=== PATIENT | female | born 1935 | race Caucasian/White ===

== ENCOUNTER 2017-07-08 13:02 | Inpatient (IN) | payer MEDICAID ==
[~2017-07-08] VITALS: Ht 157.5 cm; Wt 55.9 kg
--- NOTE | 2017-07-08 13:30 | NUR ---
PT SENT BY DR VALENTIN FOR EVAL OF LEFT FOOT 1ST AND 2ND TOE. PATIENT HAS DIABETIC ULCERS X 1 MONTH. A/OX 4. BREATHING EVEN AND UNLABORED. NO SOB. VITAL STABLE. SAFETY AND COMFORT MEASURES IN PLACE. AWAITING MD ORDERS.
--- NOTE | 2017-07-08 13:40 | NUR ---
NEW IV STARTED ON RAC, 20 G. BLOOD DRAWN AND SENT TO LAB.
[2017-07-08 13:45] LABS: BASOPHILS # (AUTO) 0.5 /CMM (0.0-0.2); BASOPHILS % (AUTO) 4.5 % (0.0-2.0); EOSINOPHILS # (AUTO) 0.3 /CMM (0.0-0.7); EOSINOPHILS % (AUTO) 2.9 % (0.0-6.0); HEMATOCRIT 39 % (33-45); HEMOGLOBIN 13.1 g/dL (11.5-14.8); LYMPHOCYTES # (AUTO) 2.7 /CMM (0.8-4.8); LYMPHOCYTES % (AUTO) 24.9 % (20.0-44.0); MEAN CORPUSCULAR HEMOGLOBIN 30 PG (26.0-33.0); MEAN CORPUSCULAR HGB CONC 34 g/dl (31.0-36.0); MEAN CORPUSCULAR VOLUME 88 fL (82-100); MONOCYTES # (AUTO) 0.6 /CMM (0.1-1.30); MONOCYTES % (AUTO) 5.4 % (2.0-12.0); NEUTROPHILS # (AUTO) 6.6 /CMM (1.8-8.9); NEUTROPHILS % (AUTO) 62.3 % (43.0-81.0); PLATELET COUNT (AUTO) 300 /CMM (150-450); RDW COEFFICIENT OF VARIATION 12.9 (11.5-15.0); WHITE BLOOD COUNT (AUTO) 10.7 K/uL (4.3-11.0)
[2017-07-08 13:58] LABS: CALCIUM, SERUM 9.2 mg/dL (8.5-10.1); CARBON DIOXIDE 27 mmol/L (21-32); CHLORIDE 104 mmol/L (98-107); CREATININE 0.9 mg/dL (0.6-1.3); GLUCOSE 190 mg/dL (74-106); POTASSIUM 4.1 mmol/L (3.5-5.1); SODIUM SERUM 137 mmol/L (136-145); UREA NITROGEN, BLOOD 20 mg/dL (7-18)
[2017-07-08 14:03] LABS: INR 0.89 (0.85-1.15)
[2017-07-08 14:05] LABS: ALANINE AMINOTRANSFERASE 14 U/L (12-78); ALBUMIN 3.8 g/dL (3.4-5.0); ALKALINE PHOSPHATASE 88 U/L (46-116); ASPARTATE AMINOTRANSFERASE 13 U/L (15-37); BILIRUBIN,DIRECT 0.1 mg/dL (0.0-0.2); BILIRUBIN,TOTAL 0.3 mg/dL (0.2-1.0); TOTAL PROTEIN, SERUM 7.8 g/dL (6.4-8.2)
[2017-07-08] MEDS ORDERED: VANCOMYCIN 1 GM in IV D5W 250 ML IV ONE (14:30)
[2017-07-08] MEDS ORDERED: PIPERACILLIN /TAZOBACTAM 3.375 G in IV D5W 50 ML IV ONE (14:30)
[2017-07-08] MEDS ORDERED: HYDROMORPHONE INJ 0.5 MG/0.5 ML SYRINGE ONE (14:57)
[2017-07-08] MEDS ORDERED: PIRO20CA2 PO (14:59)
[2017-07-08] MEDS ORDERED: [UNRECOGNIZED DRUG - OTHER] PO (14:59)
[2017-07-08] MEDS ORDERED: RANI150T8 PO (14:59)
[2017-07-08] MEDS ORDERED: GLYB-214 PO (14:59)
[2017-07-08] MEDS ORDERED: [UNRECOGNIZED DRUG - OTHER] PO (14:59)
[2017-07-08] MEDS ORDERED: MORPHINE SULFATE INJ 2 MG/ML DISP.SYRIN IV ONE (15:00)
[2017-07-08] MEDS ORDERED: HYDROMORPHONE 1 MG/1 ML DISP.SYRIN IV ONE (15:00)
--- NOTE | 2017-07-08 15:05 | NUR ---
PATIENT MEDICATED PER MD ORDERS.
--- NOTE | 2017-07-08 16:26 | NUR ---
REPORT GIVEN TO LYDIA BARRIOS FOR JANELL UPON ADMISSION.
--- NOTE | 2017-07-08 16:30 | NUR ---
RN NOTES REPORT RECEIVED FROM JOHN BARRIOS FROM ER REGARDING PATIENT CONDITION
[2017-07-08] MEDS ORDERED: ONDANSETRON HCL/PF 4 MG/2 ML VIAL IVP PRN (17:00)
[2017-07-08] MEDS ORDERED: ACETAMINOPHEN 325 MG TABLET PO PRN (17:00)
[2017-07-08] MEDS ORDERED: Z GUARD REMEDY 2 OZ OINT TP PRN (17:00)
[2017-07-08] MEDS ORDERED: MAGNESIUM HYDROXIDE 30 ML UDC PO PRN (17:00)
[2017-07-08] MEDS ORDERED: MAG HYDROX/AL HYDROX/SIMETH 30 ML UDC PO PRN (17:00)
--- NOTE | 2017-07-08 17:02 | NUR ---
CALLED DR SAWYER, LEFT A VOICEMAIL.
--- NOTE | 2017-07-08 17:51 | NUR ---
PATIENT TRANSPORTED TO [facility] VIA STRETCHER WITH EMT. RN, LYDIA TO PROVIDE JANELL.
[2017-07-08] MEDS ORDERED: PIPERACILLIN /TAZOBACTAM 3.375 G in IV D5W 50 ML IV SCH (18:00)
[2017-07-08] MEDS ORDERED: HYDROMORPHONE INJ 0.5 MG/0.5 ML SYRINGE IV PRN (18:00)
[2017-07-08] MEDS ORDERED: FEE PK DOSING 1 MIN EA MC ONE (18:02)
--- NOTE | 2017-07-08 18:57 | NUR ---
MS RN NOTES PATIENT ARRIVED AT UNIT AT 1840, ARRIVED BY ERENDIRA, ACCOMPANIED BY AGUSTIN (DTR). PATIENT 81 YEAR OLD FEMALE. ALERT AND ORIENTED X 3. ABLE TO MAKE NEEDS KNOWN AND FOLLOW SIMPLE INSTRUCTIONS. PATIENT BREATHING EVEN AND UNLABORED. NO SOB OR ACUTE DISTRESS NOTED. PATIENT AFEBRILE, SKIN DRY AND WARM TO TOUCH. NO CHANGES IN LOC NOTED. PATIENT CALM AND RELAXED. PATIENT AND DAUGHTER ORIENTED TO UNIT, ROOM, STAFF, CALL LIGHT SYSTEM, MEAL AND MENU SYSTEM. IV SITE ON RIGHT AC, INTACT AND PATENT, NO BLEEDING OR SWELLING NOTED. PATIENT AMBULATORY, ACCOMPANIED TO BATHROOM PRN. WILL CONTINUE TO MONITOR
[2017-07-08] MEDS: IV NS 0.9% 1,000 ML IV PRN (18:59)
--- NOTE | 2017-07-08 19:01 | NUR ---
MS RN NOTES PATIENT REMAINS AWAKE, ALERT, VERBALLY RESPONSIVE AND RESPONDS TO VERBAL AND TACTILE STIMULI. BREATHING EVEN AND UNLABORED. NO CHANGES IN LOC NOTED. ENDORSED TO INCOMING SHIFT
[2017-07-08 19:09] VITALS: BP 143/77
--- NOTE | 2017-07-08 19:40 | NUR ---
RN MS INITIAL NOTES RECEIVED PT LAYING IN BED WITH HOB ELEVATED. AWAKE AND RESPONSIVE, RESPIRATIONS ARE EVEN AND UNLABORED, NOT IN ANY ACUTE DISTRESS NOTED. DENIES ANY PAIN AT THIS TIME. IV TO RAC INTACT, NO INFILTRATION NOTED. DRESSING KEPT CLEAN AND DRY. SAFETY MEASURES IN PLACE. INSTRUCTED PT TO USE CALL LIGHT WHEN ASSISTANCE IS NEEDED, CALL LIGHT IS LEFT WITHIN REACH. WILL CONTINUE TO MONITOR THROUGHOUT SHIFT.
[2017-07-08 20:00] VITALS: BP 130/72
[2017-07-08 20:25] VITALS: BP 130/72
[2017-07-08] MEDS ORDERED: PIROXICAM 20 MG CAPSULE PO SCH ×2 (21:00)
[2017-07-08] MEDS: FAMOTIDINE (20 MG) 20 MG TABLET PO SCH (21:26)
[2017-07-08] MEDS: HYDROCODONE/APAP 5/325MG 1 EACH TABLET PO PRN (21:28)
[2017-07-08] MEDS: PIPERACILLIN /TAZOBACTAM 2.25 G in IV NS 0.9% 50 ML IV SCH (22:47)
[2017-07-09] MEDS: VANCOMYCIN 500 MG in IV NS 0.9% 100 ML IV SCH ×2 (02:24→14:23)
[2017-07-09 04:47] VITALS: BP 111/55
[2017-07-09] MEDS: PIPERACILLIN /TAZOBACTAM 2.25 G in IV NS 0.9% 50 ML IV SCH ×3 (05:43→17:40)
[2017-07-09] MEDS: FAMOTIDINE (20 MG) 20 MG TABLET PO SCH ×3 (05:43→20:42)
--- NOTE | 2017-07-09 06:45 | NUR ---
RN Notes Peripheral IV to RAC noted to be infiltrated. New peripheral inserted to R wrist g20. Tolerated procedure well. Will continue to monitor.
--- NOTE | 2017-07-09 06:58 | NUR ---
RN Closing Notes All due meds given, needs met and rendered. Pt is easy to arouse and responsive. Remains afebrile. Respirations are even and unlabored, not in any acute distress noted. IV to RAC intact, dressing kept clean and dry. Bilateral heels and bony prominences offloaded to prevent further skin injuries. No drainage noted to Left foot wounds, left open to air. Kept clean and dry. Reminded pt to use call light when assistance is needed, call light is left within reach. Will endorse to next shift for continuity of care.
[2017-07-09 07:38] LABS: BASOPHILS # (AUTO) 0.1 /CMM (0.0-0.2); BASOPHILS % (AUTO) 1.6 % (0.0-2.0); EOSINOPHILS # (AUTO) 0.3 /CMM (0.0-0.7); EOSINOPHILS % (AUTO) 4.3 % (0.0-6.0); HEMATOCRIT 38 % (33-45); HEMOGLOBIN 13.3 g/dL (11.5-14.8); LYMPHOCYTES # (AUTO) 2.1 /CMM (0.8-4.8); LYMPHOCYTES % (AUTO) 30.9 % (20.0-44.0); MEAN CORPUSCULAR HEMOGLOBIN 31 PG (26.0-33.0); MEAN CORPUSCULAR HGB CONC 35 g/dl (31.0-36.0); MEAN CORPUSCULAR VOLUME 89 fL (82-100); MONOCYTES # (AUTO) 0.5 /CMM (0.1-1.30); NEUTROPHILS # (AUTO) 3.8 /CMM (1.8-8.9); NEUTROPHILS % (AUTO) 56.2 % (43.0-81.0); PLATELET COUNT (AUTO) 272 /CMM (150-450); RDW COEFFICIENT OF VARIATION 13.5 (11.5-15.0); WHITE BLOOD COUNT (AUTO) 6.8 K/uL (4.3-11.0)
--- NOTE | 2017-07-09 07:40 | NUR ---
MS RN OPENING NOTES RECEIVED PATIENT IN BED, AWAKE, ALERT ORIENTED X4. ON ROOM AIR. RESPIRATIONS EVEN AND UNLABORED. NO SIGNS OF DISTRESS AND DISCOMFORT NOTED. IV SITE AT RIGHT WRIST, PATENT AND INTACT WITH FLUIDS INFUSING AT 60 ML/HR. KEPT CLEAN, DRY AND COMFORTABLE. SAFETY MEASURES IN PLACE, CALL LIGHT WITHIN EASY REACH, BED IS ON LOW LOCKED POSITION, SIDE RAILS UPX2. WILL CONTINUE TO MONITOR.
[2017-07-09 07:58] LABS: CALCIUM, SERUM 8.7 mg/dL (8.5-10.1); CARBON DIOXIDE 26 mmol/L (21-32); CHLORIDE 105 mmol/L (98-107); CREATININE 0.9 mg/dL (0.6-1.3); GLUCOSE 105 mg/dL (74-106); MAGNESIUM 1.8 mg/dL (1.8-2.4); PHOSPHORUS 3.2 mg/dL (2.5-4.9); POTASSIUM 3.8 mmol/L (3.5-5.1); SODIUM SERUM 142 mmol/L (136-145); UREA NITROGEN, BLOOD 14 mg/dL (7-18)
[2017-07-09 08:00] VITALS: BP 127/64
[2017-07-09 08:07] LABS: CHOLESTEROL 237 mg/dL (<200); HDL CHOLESTEROL 46 mg/dL (40-60); LDL 143 mg/dL (0-99); THYROID STIMULATING HORMONE 9.238 uIU/mL (0.358-3.74); TRIGLYCERIDES 329 mg/dL (30-150)
[2017-07-09] MEDS: glyBURIDE/METFORMIN 5-500 MG 1 EACH TABLET PO SCH (08:37)
[2017-07-09 16:00] VITALS: BP 139/71
[2017-07-09] MEDS: IV NS 0.9% 1,000 ML IV PRN (17:46)
--- NOTE | 2017-07-09 19:29 | NUR ---
MS RN CLOSING NOTES PATIENT IN BED, AWAKE, ALERT ORIENTED X4. ON ROOM AIR. RESPIRATIONS EVEN AND UNLABORED. NO SIGNS OF DISTRESS AND DISCOMFORT NOTED. IV SITE AT RIGHT WRIST, PATENT AND INTACT WITH FLUIDS INFUSING AT 60 ML/HR. KEPT CLEAN, DRY AND COMFORTABLE. SAFETY MEASURES IN PLACE, CALL LIGHT WITHIN EASY REACH, BED IS ON LOW LOCKED POSITION, SIDE RAILS UPX2. WILL ENDORSE TO PM SHIFT FOR CONTINUATION OF CARE.
--- NOTE | 2017-07-09 19:30 | NUR ---
MS RN NOTES RECEIVED PATIENT IN BED, AWAKE, ALERT ORIENTED X4, TAIWANESE SPEAKING. RESPIRATIONS EVEN AND UNLABORED. NO SIGNS OF DISTRESS AND DISCOMFORT NOTED. IV SITE AT RIGHT WRIST, PATENT AND INTACT WITH FLUIDS INFUSING WELL AT 60 ML/HR. NO C/O BENNETT OR DISCOMFORT AT THIS TIME. KEPT CLEAN, DRY AND COMFORTABLE. SAFETY MEASURES IN PLACE, CALL LIGHT WITHIN EASY REACH, BED IS ON LOW LOCKED POSITION, SIDE RAILS UPX2. ALL NEEDS ATTENDED AND MET. WILL CONTINUE TO MONITOR.
[2017-07-09 20:00] VITALS: BP 120/60
[2017-07-09] MEDS: CEFTRIAXONE 1 G in IV NS 0.9% 50 ML IV SCH (20:41)
[2017-07-10] MEDS: VANCOMYCIN 500 MG in IV NS 0.9% 100 ML IV SCH ×2 (01:57→15:18)
[2017-07-10] MEDS: FAMOTIDINE (20 MG) 20 MG TABLET PO SCH ×3 (04:50→20:35)
[2017-07-10 06:48] LABS: CALCIUM, SERUM 8.8 mg/dL (8.5-10.1); CARBON DIOXIDE 27 mmol/L (21-32); CHLORIDE 107 mmol/L (98-107); GLUCOSE 162 mg/dL (74-106); POTASSIUM 4.1 mmol/L (3.5-5.1); SODIUM SERUM 144 mmol/L (136-145); UREA NITROGEN, BLOOD 17 mg/dL (7-18)
--- NOTE | 2017-07-10 07:00 | NUR ---
MS RN NOTES PATIENT IN BED AWAKE , ALERT ORIENTED. NO ACUTE DISTRESS NOTED. NO SOB NOTED. BREATHING EVEN AND UNLABORED. DENIED ANY PAIN AT THIS TIME. IV ACCESS PATENT AND INTACT. CALL LIGHT WITHIN REACH. SAFETY MEASURES IN PLACE. WILL CONTINUE TO MONITOR ACCORDINGLY.
--- NOTE | 2017-07-10 07:08 | NUR ---
MS RN NOTES PATIENT IN BED, RESTING COMFORTABLY AT THIS TIME, AROUSES EASILY, ALERT ORIENTED X4, BELIZE[place] SPEAKING. RESPIRATIONS EVEN AND UNLABORED. NO SIGNS OF DISTRESS AND DISCOMFORT NOTED. IV SITE AT RIGHT WRIST, PATENT AND INTACT WITH FLUIDS INFUSING WELL AT 60 ML/HR. NO C/O BENNETT OR DISCOMFORT AT THIS TIME. KEPT CLEAN, DRY AND COMFORTABLE. SAFETY MEASURES IN PLACE, CALL LIGHT WITHIN EASY REACH, BED IS ON LOW LOCKED POSITION, SIDE RAILS UPX2. ALL NEEDS ATTENDED AND MET. WILL ENDORSE TO NXT SHIFT FOR JANELL.
[2017-07-10 08:00] VITALS: BP 119/60
[2017-07-10] MEDS: glyBURIDE/METFORMIN 5-500 MG 1 EACH TABLET PO SCH (08:31)
[2017-07-10] MEDS: HYDROCODONE/APAP 5/325MG 1 EACH TABLET PO PRN (13:53)
[2017-07-10] MEDS: IV NS 0.9% 1,000 ML IV PRN (14:29)
[2017-07-10] MEDS: CADEXOMER IODINE 40 GM TUBE TP SCH (15:20)
[2017-07-10] MEDS: DAKINS QUARTER STRENGTH (0.125%) 480 ML BOTTLE TOP SCH (15:21)
[2017-07-10 16:00] VITALS: BP 133/70
[2017-07-10] MEDS: LACTOBACILLUS RHAMNOSUS GG 1 EACH CAP.SPRINK PO SCH (16:55)
--- NOTE | 2017-07-10 19:00 | NUR ---
MS RN CLOSING NOTES Patient in bed eyes closed, arousable , respond to verbal and tactile stimuli. Family at bedside. No sob noted. No acute distress noted. Breathing unlabored. Iv acces patent and intact. No s s/x of infiltration noted. Due medications given, No ASE noted. Safety measures in place, HOB elevated. Endorsed to incoming shift for continuity of care.
--- NOTE | 2017-07-10 19:20 | NUR ---
MS RN NOTES RECEIVED PT IN BED, AWAKE, A/O X 4, BENINESE SPEAKING ONLY. SON AND DAUGHTER IN LAW AT BEDSIDE. PT WITH NO ACUTE DISTRESS NOR SOB NOTED AT THIS TIME. IV SITE ON RIGHT WRIST INTACT AND PATENT, NO S/S OF INFILTRATION NOTED. IVF INFUSING WELL. NO C/O PAIN OR DISCOMFORT AT THIS TIME. SAFETY PRECAUTIONS OBSERVED. BED ON LOWEST LEVEL. ALL NEEDS ATTENDED AND MET. KEPT COMFORTABLE. WILL CONTINUE TO MONITOR.
[2017-07-10 20:00] VITALS: BP 126/68
[2017-07-10] MEDS: CEFTRIAXONE 1 G in IV NS 0.9% 50 ML IV SCH (20:35)
--- NOTE | 2017-07-10 22:38 | NUR ---
PT'S SON REQUESTED TO HAVE HIS MOM'S BLOOD SUGAR CHECKED AT BED TIME, PT AGREED. PT'S BS : 201 AT THIS TIME, PER PT SHE JUST HAD APPLE JUICE. NO S/S OF HYPERGLYCEMIA NOTED AT THIS TIME. WILL ENDORSE TO DAY SHIFT NURSE. CHARGE NURSE [place] AWARE. WILL CONT TO MONITOR.
[2017-07-11] MEDS: VANCOMYCIN 500 MG in IV NS 0.9% 100 ML IV SCH ×2 (01:22→14:46)
[2017-07-11] MEDS: FAMOTIDINE (20 MG) 20 MG TABLET PO SCH ×2 (05:46→13:20)
--- NOTE | 2017-07-11 06:40 | NUR ---
MS RN NOTES PT IN BED, RESTING COMFORTABLY AT THIS TIME, AROUSES EASILY. A/O X 4, MONGOLIAN SPEAKING ONLY. PT WITH NO ACUTE DISTRESS NOR SOB NOTED AT THIS TIME. IV SITE ON RIGHT WRIST INTACT AND PATENT, NO S/S OF INFILTRATION NOTED. IVF INFUSING WELL. NO C/O PAIN OR DISCOMFORT AT THIS TIME. NO S/S OF HYPO/ HYPERGLYCEMIA AT THIS TIME. SAFETY PRECAUTIONS OBSERVED. BED ON LOWEST LEVEL. ALL NEEDS ATTENDED AND MET. KEPT COMFORTABLE. WILL ENDORSE TO NEXT SHIFT FOR JANELL. .
[2017-07-11 06:51] LABS: CALCIUM, SERUM 8.1 mg/dL (8.5-10.1); CARBON DIOXIDE 25 mmol/L (21-32); CHLORIDE 108 mmol/L (98-107); CREATININE 0.9 mg/dL (0.6-1.3); GLUCOSE 162 mg/dL (74-106); POTASSIUM 3.8 mmol/L (3.5-5.1); SODIUM SERUM 143 mmol/L (136-145); UREA NITROGEN, BLOOD 17 mg/dL (7-18)
--- NOTE | 2017-07-11 07:15 | NUR ---
RN OPENING NOTES RECEIVED PT. IN BED A&OX4. BREATHING UNLABORED, AND EVENLY ON ROOM AIR. NO S/S OF ACUTE DISTRESS. IV FLUIDS RUNNING AT 60 ML/HR. FWW AT BEDSIDE FOR AMBULATION. BED IS IN LOWEST, AND LOCKED POSITION, 2 SIDE RAILS UP, AND INSTRUCTED PT. TO USE CALL LIGHT FOR ASSISTANCE. ALL NEEDS MET. WILL CONTINUE TO ASSESS AND MONITOR.
[2017-07-11] MEDS: HYDROCODONE/APAP 5/325MG 1 EACH TABLET PO PRN ×2 (08:02→14:56)
[2017-07-11 08:19] VITALS: BP 122/61
[2017-07-11] MEDS: LACTOBACILLUS RHAMNOSUS GG 1 EACH CAP.SPRINK PO SCH ×2 (08:25→16:25)
[2017-07-11] MEDS: glyBURIDE/METFORMIN 5-500 MG 1 EACH TABLET PO SCH (08:25)
[2017-07-11] MEDS: CADEXOMER IODINE 40 GM TUBE TP SCH (10:11)
[2017-07-11] MEDS: DAKINS QUARTER STRENGTH (0.125%) 480 ML BOTTLE TOP SCH (10:11)
[2017-07-11] MEDS ORDERED: CEFT1VIA15 IV (15:01)
[2017-07-11] MEDS ORDERED: LACT1CAP72 PO (15:01)
[2017-07-11] MEDS ORDERED: HYDR-3972 PO (15:01)
[2017-07-11] MEDS ORDERED: VANC500F2 IV (15:01)
[2017-07-11] MEDS ORDERED: CADE40GE2 TP (15:01)
[2017-07-11 16:00] VITALS: BP 132/64
--- NOTE | 2017-07-11 16:45 | NUR ---
BOT[employer]ING EQUIPMENT SALES REPRESENTATIVE NOTES DISCHARGE INSTRUCTIONS WITH EDUCATION WAS GIVEN TO PATIENT, AND PATIENT'S DAUGHTER. PT. AND DAUGHTER VERBALIZED UNDERSTANDING. PT. WAS SEEN AND EXAMINED BY DR. VALENTIN. ID BAND, AND IV WAS REMOVED WITHOUT COMPLICATIONS. BELONGINGS LIST WAS CHECKED, AND SIGNED. PT. WAS PICKED UP BY AMBULANCE, AND TAKEN TO [facility] IN AMBULANCE IN MEDICALLY STABLE CONDITION. DISCHARGE PACKET AND REPORT WAS GIVEN TO AMBULANCE. AN ADDITIONAL COPY OF DISCHARGE PACKET WAS GIVEN TO PT.'S DAUGHTER.
--- NOTE | 2017-07-11 19:06 | NUR ---
WAITER/WAITRESS CAPTAIN CALLED [facility] AND GAVE REPORT TO YVETTE OLGUIN.
== END 2017-07-11 18:40 | disposition short-term general hospital (02) | DRG 197 ==
LOC: ER 13:07 → MED 17:24
PROVIDERS: ADMIT Nurse Practitioner Acute Care; ATTEND Nurse Practitioner Acute Care
DX: E11.52 Type 2 diabetes mellitus with diabetic peripheral angiopathy with gangrene (principal); N17.0 Acute kidney failure with tubular necrosis; L03.116 Cellulitis of left lower limb; E11.65 Type 2 diabetes mellitus with hyperglycemia; E03.9 Hypothyroidism, unspecified; Z79.84 Long term (current) use of oral hypoglycemic drugs; E11.69 Type 2 diabetes mellitus with other specified complication; M86.8X7 Other osteomyelitis, ankle and foot; G89.29 Other chronic pain
CPT/HCPCS: 36415; 73630-TC; 80048-TC; 80061-TC; 80076-TC; 80202-TC; 82962-TC; 83605-TC; 83735-TC; 84100-TC; 84439-TC; 84443-TC; 85025-TC; 85730-TC; 87040-TC; 87081-TC; A4216; A4606; A6402; J0696; J2543; J3370; J7030; J7060; Z7610